=== PATIENT | female | born 1985 | race Caucasian/White ===

== ENCOUNTER 2023-10-12 08:32 | Emergency (ER) | payer OTHER, SELFPAY ==
[2023-10-12 08:33] VITALS: BP 118/75; PULSE 88; RESP 14; TEMP 36.6; O2SAT 97
--- NOTE | 2023-10-12 09:20 | EX.ED.DYSGE1 ---
HPI History of Present Illness Chief Complaint: Nosebleed Informant: patient Onset/Context/Timing Onset: Today Context: Sudden Onset Timing: Continuous Quality: Red blood Location: Right nares Worsened by: Nothing Relieved by: Nothing Narrative Narrative: Patient presents with epistaxis that began today. Patient states she has had some episodes of epistaxis over the past several days. Patient states that today lasted approximately 1 hour. Patient states it has been persistent. Family states that it was bleeding excessively and pouring out of her nose. Patient denies any trauma or injury. Patient denies any history of bleeding disorders. Patient denies any easy bleeding or bruising. Patient states she has had similar episodes in the past few sanchez. Prior similar symptoms: Yes PFSH PFSH Medical History no medical history no medical history Allergy/AdvReac Type Severity Reaction Status Date / Time No Known Allergies Allergy Verified 10/12/23 08:33 Surgical History (Updated 10/12/23 @ 09:[address] Toby Beasley DO) Hx of foot surgery Social History Smoking Status: Never smoker ROS ROS ED Constitutional Constitutional ED: Denies chills or fever(s) Eyes Eyes: Denies blurry vision or change in vision ENT ENT ED: Denies rhinorrhea or sore throat Cardiovascular Cardiovascular: Denies chest pain or palpitations Respiratory/Chest Respiratory/Chest: Denies cough or dyspnea Gastrointestinal Gastrointestinal: Reports nausea; Denies vomiting Genitourinary Genitourinary ED: Denies dysuria or hematuria Musculoskeletal Musculoskeletal: Denies back pain or neck pain Integumentary Denies abscess or rash Neurologic Neurologic: Denies headache(s) or weakness Allergic/Immunologic Allergic/Immunologic ED: Denies mouth swelling or urticaria EXAM Physical Exam Const Vital Signs: 10/12/23 08:33 10/12/23 10:48 Temperature 98 F Temperature Source Temporal Pulse Rate 88 79 Respiratory Rate 14 16 Blood Pressure 118/75 104/67 Blood Pressure Mean 89 79 Pulse Ox 97 Oxygen Delivery Method Room Air Positive well nourished and well developed General Appearance ED: well developed and NAD HEENT Reports moist mucous membranes HEENT Narrative: There is a mild amount of bleeding in the right nares. It appears to be coming from the right anterior nasal septum. There is no bleeding in the oropharynx. There is some dried blood in the left nares. There is no septal deviation or septal hematoma noted. Neck supple and no JVD Neuro oriented x3, CN's II-XII intact bilaterally and no sensory deficits noted Sensorium / Orientation: alert Motor Exam: strength 5/5 throughout Psych mental status grossly normal MDM MDM MDM Narrative Medical decision making narrative: Patient started having epistaxis again here in the emergency department. Dr. Rachel solution was applied to cotton balls and placed in the right nares. This slowed down the bleeding. I recommended nasal packing. Patient and family are agreeable with this. A 5.5 cm anterior rapid Rhino was applied to the right nares. The balloon was inflated with 4 cc of air. Patient was able to tolerate without difficulty. Patient was observed for further bleeding. Treatment and Re-Evaluation :: There is no further bleeding on reevaluation. Patient was instructed to maintain the packing until she can follow-up with her primary care physician in 2 days. Patient and family understand and are agreeable with the plan. All questions were answered. Discharge Plan Triage Chief Complaint: Nosebleed ED Provider: Toby Beasley Dx/Rx/DC Orders Clinical Impression: Acute anterior epistaxis, Iron deficiency anemia Instructions: ED Epistaxis (Adult) Primary Care Provider: Care Physician,No Primary Referrals: Alfredo Tang PA-C [Non-Staff] - 2 Days Care Physician,No Primary [Primary Care Provider] - Print Language: Israeli Disposition Disposition: Home, Self Care
[2023-10-12] MEDS: Mixture 30 ML Bottle TOPICAL (10:17)
--- NOTE | 2023-10-12 10:38 | ED.RN ---
VISITOR/SCRAP COLLECTOR WITH THE PT IS ASKING IF A CBC SHOULD BE DONE SINCE PTS NOSE IS BLEEDING. PT IS NOT ACTIVELY BLEEDING AND HASN'T BEEN. VISITOR STATES THE PT TOLD HER SHE WAS TAKING IRON. EXPLAINED THAT TEST RUN IN THE ER ARE BASED ON CRITERIA FOR THE SITUATION GOING ON. THE VISITOR THEN STATED WELL WE ARE HERE SO CAN'T WE JUST DO IT? EXPLAINED AGAIN THERE HAS TO BE A REASON FOR TESTING NOT JUST BECAUSE. IT IS ULTIMATELY UP TO THE DR AND IF HE FEELS ITS A NECESSARY TEST. SHE STATED IT A COUPLE MORE TIMES AND IT WAS REITERATED THAT IT IS AT THE DR DISCRETION. THIS NURSE THEN WENT TO INFORM THE DR OF THE VISITOR REQUEST AND HE STATED THAT SHE HAD ALREADY ASKED THAT OF HIM AND HE EXPLAINED WHY THAT WAS NOT NEEDED.
[2023-10-12 10:48] VITALS: BP 104/67; PULSE 79; RESP 16
== END 2023-10-12 11:18 | disposition home or self-care (01) ==
PROVIDERS: Emergency Provider Emergency Medicine; Visit Provider Emergency Medicine
DX: R04.0 Epistaxis (principal); D50.9 Iron deficiency anemia, unspecified
CPT/HCPCS: 30901; 99282